=== PATIENT | female | born 1960 | race Caucasian/White ===

== ENCOUNTER 2023-12-31 13:04 | Outpatient (CLI) | payer BC | END 2023-12-31 13:05 | disposition home or self-care (01) | LOC: SCSMRI 13:04 | PROVIDERS: ATTEND Pediatrics | DX: M25.361 Other instability, right knee (principal); S83.231A Complex tear of medial meniscus, current injury, right knee, initial encounter; M94.8X8 Other specified disorders of cartilage, other site ==